=== PATIENT | female | born 1965 | race Caucasian/White ===

== ENCOUNTER → 2017-04-16 | Day surgery (SDC) | payer BC ==
[~2017-04-16] MED LIST: ADDE20XR PO; BUPIVACAINE/EPINEPHRINE 0.5% PF 30 ML VIAL INFIL ONE; CLON-352 PO; KETOROLAC TROMETHAMINE 30 MG/ML (IVP) VIAL IV PUSH ONE; LACTATED RINGER'S 1000 ML INJ 1,000 ML ONE; LORA10TA7 PO; MIDAZOLAM HCL 2 MG/2 ML VIAL ONE; MINOCYCLINE PO; ONDANSETRON HCL 4 MG/2 ML VIAL IV PUSH ONE; PROPOFOL 200 MG/20 ML AMP IV ONE; TRIAMCINOLONE ACETONIDE 40 MG/ML VIAL ONE; ZOLP10TA3 PO; ceFAZolin INJ 1,000 MG VIAL ONE
--- NOTE | 2017-04-16 21:36 | MP ---
cc: JAMAICA CLARKE MD DATE OF SURGERY 04/16/17 PREOPERATIVE DIAGNOSIS Right knee medial meniscal tear and chondromalacia of the medial femoral condyle and patella. POSTOPERATIVE DIAGNOSIS Right knee medial meniscal tear and chondromalacia of the medial femoral condyle and patella. SURGEON Mayte Clarke MD ANIMAL RIDE MANAGER ELIZABETH Mccormick The surgical procedure was assisted by my Advanced Registered Nurse Practitioner. My GRAPHICS ARTIST presence was necessary throughout this case for the manipulation and positioning of the surgical extremity. My GRAPHICS ARTIST was assisting me throughout the duration of this procedure. The skill set of an Advance Registered Nurse Practitioner was medically necessary to complete this procedure. During the surgical case, the surgical supervisor was working at the back table and the Advance Registered Nurse Practitioner was directly assisting me. PROCEDURE Right knee arthroscopy, partial medial meniscectomy, chondroplasty medial femoral condyle, chondroplasty of the patella ESTIMATED BLOOD LOSS Minimal ANESTHESIA General anesthesia TOURNIQUET TIME 0 minutes PROCEDURE The patient was brought back to the operative theater. General anesthesia was administered. She received intravenous Ancef. The right lower extremity was prepped and draped in usual sterile fashion. We made a standard inferolateral portal followed by inferomedial portal under spinal needle visualization. There was moderate synovitis in the suprapatellar pouch. There was some hypertrophy of the synovium just proximal to the cartilage of the trochlea. There were a couple of small fragments of cartilage which were floating around in this area which were removed with the shaver. We found that there was grade 3 chondromalacia of the patella encompassing most of the articulating surface of the patella with unstable segments of cartilage. We used an oscillating shaver to perform a chondroplasty of the patella. Probably about half of the thickness of the patella was involved by this chondromalacia. Evaluation of the medial femoral condyle showed that there was grade 3 chondromalacia diffusely and extensively on the condyle with unstable segments of cartilage. We used an oscillating shaver to perform a chondroplasty in this area probably about half of the thickness of the cartilage. There was a small complex tear of the medial meniscus in the posterior horn region. We used an oscillating shaver and meniscal biter to perform a partial meniscectomy and removed approximately 15% of the meniscus with this procedure. The anterior cruciate ligament was found to be intact. Lateral meniscus and lateral compartment was free of chondromalacia. There was a very small loose body in the medial gutter which was removed. There was no loose body in the lateral gutter. Interarticular injection of 0.25% Marcaine was given with 40 mg of Kenalog. The arthroscopic portals were closed with 2-0 Vicryl followed by 3-0 nylon followed by dressing. Postop plan is weight bear as tolerated, early range of motion. MD ZAINA Banda/ /3:24 PM /9:24 PM
== END | disposition home or self-care (01) ==
LOC: ESDC 13:49
PROVIDERS: ATTEND Orthopaedic Surgery
DX: S83.231A Complex tear of medial meniscus, current injury, right knee, initial encounter (principal); M22.41 Chondromalacia patellae, right knee
CPT/HCPCS: 01400; 29881; J0690; J1885; J2250; J2405; J3010; J3301; J7120